=== PATIENT | female | born 1995 | race Caucasian/White ===

== ENCOUNTER 2017-06-12 04:58 | Inpatient (IN) | payer MEDICAID ==
[2017-06-12] MEDS: Lactated Ringers 1,000 ML IV SCH ×3 (05:50→11:17)
[2017-06-12] MEDS ORDERED: Sodium Chloride 0.9% 10 ML Syringe FLUSH PRN ×3 (06:12→12:06)
[2017-06-12] MEDS ORDERED: fentaNYL 100 MCG/2 ML SDV IVPUSH PRN (06:23)
[2017-06-12] MEDS ORDERED: Ondansetron 4 MG/2 ML SDV IV PRN (06:26)
[2017-06-12] MEDS ORDERED: fentaNYL 100 MCG/2 ML SDV ONE (07:36)
[2017-06-12] MEDS ORDERED: EPINEPHrine 1 MG/ML SDV ONE (07:37)
[2017-06-12] MEDS ORDERED: Carboprost Tromethamine 250 MCG/1 ML Amp IM PRN (07:59)
[2017-06-12] MEDS ORDERED: Lidocaine 1% 30 ML SDV INJECT PRN (07:59)
[2017-06-12] MEDS ORDERED: Misoprostol 400 MCG (4 X 100 MCG TAB) RECTAL PRN (07:59)
[2017-06-12] MEDS ORDERED: Lactated Ringers 500 ML IV ONE (07:59)
[2017-06-12] MEDS ORDERED: Methylergonovine 0.2 MG/1 ML Amp IM PRN (07:59)
[2017-06-12] MEDS ORDERED: Lactated Ringers 1,000 ML IV SCH (08:00)
--- NOTE | 2017-06-12 08:24 | PCM.PRNOTE ---
- Free Text/Narrative Note: Requested to provide analgesia to full term patient in severe pain. Upon entering the room, patient is lying on left side complaining of severe abdominal pain and discomfort. Procedure was discussed with patient including adverse outcomes and expectations. Pt consented to analgesia, SAB/IT. Pt placed into a sitting position. Landmarks for SAB/IT were identified and marked. Back was prepped with betadine x3. A sterile, transparent, fenestrated drape was applied. Excess betadine was removed. Using 3 mL of a 1% lidocaine solution, a skin wheel was placed at the L4/L5 interspace. A 24 ga (4 inch) Pencan spinal needle was inserted until positive for CSF. Negative for heme or paresthesias. Injected fentanyl 20 mcg, sufentanil 10 mcg, and 10.5 mg of a 0.75% bupivacaine solution with an epi wash. Pt was placed left lateral position for approximately 20 minutes. There were zero complications or adverse outcomes. Will continue to monitor.
[2017-06-12] MEDS ORDERED: Oxytocin/Normal Saline 30 UNIT/500 ML BAG IV SCH (11:30)
--- NOTE | 2017-06-12 11:39 | PN ---
DATE: 06/12/2017 SUBJECTIVE: The patient is comfortable, status post intrathecal. OBJECTIVE: Her blood pressure dropped minimally after her intrathecal. heart tones difficult to discern at times due to movement baseline, around 110 to 120 range. Tocometer when reading does reveal contractions every 2 to 4 minutes. Vaginal exam reveals her to be 5 cm. FSC was placed after discussion with the patient to further delineate heart tones. Minimal bloody show was noted on examiner's glove. ASSESSMENT AND PLAN: Intrauterine at 39 weeks by 11 week ultrasound with active labor, gestational hypertension, gestational thrombocytopenia, history of intrauterine growth restriction and borderline oligohydramnios in active labor status post intrathecal with some bloody show. Now status post FSC to follow status closely. We will continue to follow clinically and closely. I did discuss this with the patient and her male partner. They understand and agreed to above treatment plan. At current time of dictation, variability is improving. heart tone baseline between 110 and 120s. [facility] /[id number]
--- NOTE | 2017-06-12 11:42 | PN ---
DATE: 06/12/2017 SUBJECTIVE: The patient is comfortable, status post intrathecal. OBJECTIVE: heart tones baseline is around 115 and there are at least 2 accelerations seen by my eyes with no evidence of decelerations noted in light of contractions that are monitoring. Blood pressure 113/66, recheck 112/68, heart rate between 53 and 55, O2 sat 99%. Vaginal exam deferred. ASSESSMENT/PLAN: Intrauterine at 39 weeks by 11 week ultrasound in active labor with advancing cervical dilation. Group B Streptococcus negative. History of intrauterine growth restriction and borderline oligohydramnios, resolving on serial ultrasounds and gestational thrombocytopenia with suspected bloody show. I did discuss this with the patient that most likely the blood that was noted with vaginal exam and artificial rupture of membranes most likely related to her changing cervix and bloody show. Baby is tolerating every contractions and is reassuring and reactive. We will continue to follow clinically and closely. Both her and her male partner understand and agree. [facility] /[id number]
--- NOTE | 2017-06-12 11:45 | OBOUT ---
DATE: 06/12/2017 DATE AND TIME OF NST: Date: 06/12/2017. Time: 5:30 to 5:50. REASON FOR NST: 1. Intrauterine at 39 weeks by 11-week ultrasound. 2. Active labor. 3. Gestational hypertension. 4. Gestational thrombocytopenia with platelets of 146,000. 5. History of intrauterine growth restriction and borderline oligohydramnios, followed serially, resolving within the last couple weeks. 6. G1, P0. NST INTERPRETATION: During this time period, heart tone baseline is approximately 125 to 130, and there are at least two 15 x 15-beats per minute accelerations, making this strip reactive. It is also noted to be reassuring. Tocometer reveals potential of 5 to 6 contractions felt by patient. ASSESSMENT: 1. Nonstress test, reactive and reassuring. 2. Tocometer with contraction. PLAN: Please see admit history and physical for further details. [facility] /[id number]
[2017-06-12] MEDS ORDERED: Benzocaine/Menthol 20%-0.5% Spray 56 GM Canister TOP PRN (12:06)
[2017-06-12] MEDS ORDERED: Simethicone 80 MG Tab.Chew PO PRN (12:06)
[2017-06-12] MEDS ORDERED: Zolpidem 5 MG Tab PO PRN (12:06)
[2017-06-12] MEDS ORDERED: Oxytocin 10 Units/1 ML SDV IM PRN (12:06)
--- NOTE | 2017-06-12 13:31 | HP ---
PATIENT IDENTIFICATION: Jessenia Rg is a 22-year-old, G1, P0 intrauterine at 39 weeks by 11 week ultrasound who presents with contraction. HISTORY OF PRESENT ILLNESS: Contractions started night prior to admission, woke her up at 2 a.m. on date of admission, increasing in frequency and intensity to the point that they are coming every 5-7 minutes, felt in the lower abdomen, worsening over time causing her to breathe through them. Nothing seems to make them better. Time made them worse. Not associated with any spotting, bleeding, or leaking to put this into context. She is GBS negative. Has history of borderline oligohydramnios and IUGR, which have been followed with serial ultrasounds and improving with no evidence IUGR/borderline oligo on her last ultrasound within the last 2 weeks. Records were called for and reviewed as well also supplemented by patient history. OBSTETRICAL HISTORY: Primi. ANTEPARTUM LABS: ABO blood type A positive, negative antibody. Rubella immune. RPR nonreactive. Negative hepatitis B surface antigen. Negative HIV, GC, and Chlamydia. Wet prep within normal limits. One-hour GTT on 03/05/2017 was 85. On 05/16/2017 GBS was negative. ALLERGIES: None. MEDICATIONS: vitamins. PAST MEDICAL/PAST SURGICAL HISTORY: Reviewed with history of anemia as a child. Tonsil and adenoidectomy at age 6 as well as tympanostomy tube placement when she was a child. FAMILY HISTORY: Alcohol abuse in paternal grandmother. Maternal grandfather with stomach cancer. High blood pressure in mother. Negative family history of defects, anesthesia problems, bleeding problems, thyroid disease. SOCIAL HISTORY: Moved to [place] from [place] in June. Boyfriend is from [place]. No children, age 33. His name is Reji Wing, works [employer] and a [employer] in [place]. They are expecting a girl. The patient denies any alcohol or drug use. She has been cutting back on the tobacco. REVIEW OF SYSTEMS: Otherwise reviewed and felt to be noncontributory. OBJECTIVE: Vital Signs: Initial blood pressure was 140/98, heart rate 67, patient is afebrile. Appearance: Female appears and acting appropriate for age. Nontoxic appearance. HEENT: Head atraumatic. EOMs intact. PERRLA. No scleral icterus. No obvious otorhinorrhea. Mucous membranes moist. Neck: No obvious tenderness. Lungs: Clear to auscultation bilaterally. Heart: S1 and S2 regular rate and rhythm. Abdomen: Gravid. Marino indeterminate. Nontender. Nondistended. Bowel sounds positive. No other organomegaly, pulsatile masses, or obvious hernias. No rebound, rigidity, or guarding. Genitourinary: Normal external female genitalia. Normal position and presentation of urethra. Vaginal exam reveals to be 5+ cm and after discussion with the patient, artificial rupture membranes was done. This was after she received her intrathecal and was comfortable. It revealed bloody show with amniotic fluid. Extremities: No peripheral edema. Deep tendon reflexes 3 to 4/4 bilaterally and symmetric in extremities. Psychiatric: Mood and affect are congruent. Judgment and insight intact. Skin: Without any cyanosis, clubbing, or jaundice. NST was found to be reactive and reassuring. Tocometer reveals currently 1 contractions reading approximately every 2 to 4 minutes. ASSESSMENT/PLAN: 1. Intrauterine at 39 weeks by 11 week ultrasound. 2. Active labor with advancing cervical dilation. The patient has been followed serially and has had advancing cervical dilation with contractions. 3. Gestational hypertension. The patient had a workup for preeclampsia. Labs were essentially within normal limits with her urine protein creatinine ratio less than 0.3. Her platelets, however, were 146,000. 4. Gestational thrombocytopenia, platelets 146,000. We will follow closely. 5. History of intrauterine growth restriction and borderline oligohydramnios, resolving with serial ultrasounds over the last couple weeks. 6. 1, para 0. PLAN: Did discuss with patient. With her bloody show, we will follow status closely, hold off on the OR starting a case if they ask and follow clinically. Discussed with the patient potential need for based on maternal status as well. She understands and agrees with the above treatment plan. I did discuss with her and her male partner risks, benefits, alternatives, and complications of , including but not limited to, infection, bleeding, damage to internal organs such as bowel, bladder, tubes, uterus, sometimes fetus, rarely needing a blood transfusion or further surgery, and rare maternal or . She understands and agrees if is neededa At current time of dictation the patient has been started on some oxygen, has moved off to the left side and heart tones are in between the 110s and 120s when being read. [facility] /[id number]
--- NOTE | 2017-06-12 13:34 | DEL ---
DATE: 06/12/2017 PREOPERATIVE DIAGNOSES: 1. Intrauterine at 39 weeks by 11-week ultrasound. 2. Active labor upon admit. 3. Gestational hypertension upon admit. 4. Group B Streptococcus negative. 5. History of intrauterine growth restriction and borderline oligohydramnios, resolved over serial evaluations/ultrasounds last few weeks. 6. Gestational thrombocytopenia with platelets a 146,000. 7. G1, P0. POSTOPERATIVE DIAGNOSES: 1. Intrauterine at 39 weeks by 11-week ultrasound, delivered. 2. Active labor upon admit. 3. Gestational hypertension upon admit. 4. Group B Streptococcus negative. 5. History of intrauterine growth restriction and borderline oligohydramnios, resolved over serial evaluations/ultrasounds last few weeks. 6. Gestational thrombocytopenia with platelets a 146,000. 7. G1, P0. 8. Suspect small abruption with old blood and clots with delivery of placenta all less than a quarter size in shape. PROCEDURE PERFORMED: NST, FSE, and subsequent spontaneous vaginal delivery per Dr. Tanner on 06/12/2017. ANESTHESIA/ANALGESIA: Intrathecal in the first stage of labor. ESTIMATED BLOOD LOSS: 250 mL. FINDINGS: Female, scores 8 and 9, weight pending. SUMMARY OF EVENTS: The patient is a 22-year-old, G1, P0, intrauterine 39 weeks by 11-week ultrasound, admitted in active labor with gestational hypertension. She had a workup for HELLP syndrome and was noted to have only low platelets of a 146,000. As she is progressing more into labor, she requested intrathecal and this was subsequently given, then subsequently had artificial rupture of membranes, after discussing with the patient, I did yield some bloody fluid. The patient's maternal and status was closely followed thereafter and FSE was placed to further evaluate as there were some discrepancies on heart tone. Had some reassuring heart tones with category 1 type strip. Subsequently, she was followed closely thereafter, and serially evaluated. She subsequently was found to be complete. I was called to the room, donned in sterile gown and gloves. The patient started pushing with contractions and vertex was delivered in NASREEN presentation, followed by rest of the infant, anterior and posterior shoulder and rest of the infant without difficulty. Mouth and nares were suctioned. Cord was doubly clamped and cut, and was resuscitated on mother's abdomen. Then, approximately 10 mL of cord blood was obtained for labs. At that time, there was noted to be 2 small clots smaller then size of a dime that was consistent of old blood. Placenta then delivered with gentle cord traction and fundal massage within 5 minutes and there was noted to be another blood clot about the size of a quarter that was old blood as well. Calcifications were noted along the placenta edges and in the placenta as well. Perineum, vagina, and perirectal areas were then examined and noted to have a small first-degree perineal laceration, nonbleeding, non-repaired, and less 1 cm after discussion with the patient. Mother and are currently stable at the time of dictation. [facility] /[id number]
[2017-06-12] MEDS: Ibuprofen 800 MG Tab PO PRN (15:18)
[2017-06-12] MEDS: Docusate Sodium 100 MG Cap PO PRN (15:19)
[2017-06-12] MEDS: Acetaminophen 325 MG Tab PO PRN (22:52)
[2017-06-13] MEDS: Ibuprofen 800 MG Tab PO PRN ×3 (00:08→19:41)
[2017-06-13] MEDS: Acetaminophen 325 MG Tab PO PRN (07:47)
[2017-06-13] MEDS: Prenatal Multivitamin with Calcium/Folic Acid/Iron Tab PO SCH ×2 (07:47→13:21)
[2017-06-13] MEDS: Docusate Sodium 100 MG Cap PO PRN (07:47)
[2017-06-14] MEDS: Prenatal Multivitamin with Calcium/Folic Acid/Iron Tab PO SCH (09:35)
[2017-06-14] MEDS: Docusate Sodium 100 MG Cap PO PRN (09:35)
[2017-06-14] MEDS: Ibuprofen 800 MG Tab PO PRN (09:35)
--- NOTE | 2017-06-14 09:42 | PN ---
DATE: 06/13/2017 SUBJECTIVE: The patient is tolerating p.o., ambulating, urinating, and passing flatus. Her itching has resolved. Her pain is under control. OBJECTIVE: Vital signs: Reveal a temperature of 98.2, heart rate of 70. blood pressure 125/71, and listed in the chart 199/82. I believe this is an error as previous blood pressures were within normal limits. Respiratory rate between 14 and 18. Appearance: Female appears her stated age, acting appropriate for age, nontoxic in appearance. Lungs: Clear to auscultation bilaterally. Heart: S1 and S2. Regular rate and rhythm. Abdomen: Firm uterus around the umbilicus. Extremities: No peripheral edema. No calf pain. LABORATORY DATA: Reveal a white cell count of 12.2, hemoglobin 13, and platelets of 135,000. ASSESSMENT AND PLAN: 1. day #1, status post spontaneous vaginal delivery with gestational hypertension. Her blood pressures have normalized although the last reading I believe is a mistake. 2. Gestational thrombocytopenia. Platelets are decreasing down to 135,000 from 146,000. We will repeat CBC in the morning, and follow clinically and closely. No evidence of active bleeding currently. The patient understands and agrees with the above treatment plan. [facility] /[id number]
--- NOTE | 2017-06-14 10:06 | DISCH ---
ADMIT DIAGNOSES: 1. Intrauterine at 39 weeks by 11-week ultrasound. 2. Active labor upon admission. 3. Gestational hypertension. 4. Group B strep negative. 5. History of intrauterine growth restriction, borderline oligohydramnios, resolving with serial ultrasounds. 6. Gestational thrombocytopenia with platelets a 146,000 upon admission. 7. G1, P0. POSTOPERATIVE DIAGNOSES: 1. Intrauterine at 39 weeks by 11-week ultrasound- delivered. 2. Active labor upon admission. 3. Gestational hypertension. 4. Group B strep negative. 5. History of intrauterine growth restriction, borderline oligohydramnios, resolving with serial ultrasounds. 6. Gestational thrombocytopenia with platelets a 146,000 upon admission. 7. G1, P0. 8. Suspect small abruption with old blood and clots with delivery of placenta. PROCEDURE PERFORMED: NST, FSE, artificial rupture membranes, and spontaneous vaginal delivery on 06/12/2017. Procedure was performed by Juan Pablo Tanner MD HISTORY OF PRESENT ILLNESS: Please see H and P. SUMMARY OF HOSPITAL COURSE: The patient was admitted on the above date with the above diagnoses, underwent the above procedures. She had gestational hypertension with gestational thrombocytopenia with platelets of a 146,000. Her labs were done for PIH panel which were essentially unremarkable with protein- creatinine ratio 0.08. She subsequently went onto have a spontaneous vaginal delivery yielding a female with scores of 8 and 9, weighing 6 pounds 11 ounces (3020 g), with noted suspected small abruption with old blood and clots with delivery of placenta with blood noted upon artificial rupture of membranes. She was followed closely thereafter. FSE was placed. She subsequently had spontaneous vaginal delivery as above. day #1, please see progress note. day #2, date of discharge, the patient was tolerating p.o., ambulating, urinating, passing flatus, and requesting discharge. PHYSICAL EXAMINATION: Vital Signs: Last set of vitals to be updated and listed in the chart. Blood pressure 129/93, recheck 143/87; heart rate 56 to 58. The patient is afebrile. Lungs: Clear to auscultation bilaterally. Heart: S1 and S2. Regular rate and rhythm. Abdomen: Firm uterus at -1 below umbilicus. Extremities: No peripheral edema. No calf pain. LABORATORY DATA: Discharge labs are pending with a CBC to re-evaluate her platelet count as well as hemoglobin. CONDITION ON DISCHARGE COMPARED TO CONDITION ON ADMISSION: Improved. DISCHARGE INSTRUCTIONS: 1. Diet: As tolerated. 2. Activity: No lifting more than 20 pounds, no sit-ups, straining, and pelvic rest for the next 6 weeks with immediate return to fertility discussed with the patient. 3. Reasons to return or go to the emergency room were discussed with the patient in detail including, but not limited to, temperature greater than 100.4, foul-smelling discharge, red hot tender breasts, or increased vaginal bleeding. DISCHARGE MEDICATIONS: 1. [id number] Tylenol or ibuprofen for pain. 2. vitamins while breast feeding. FOLLOWUP: Followup on 06/17/2017, if platelets are less than 140,000 on this morning's labs or concerns with her blood pressure persist. I did discuss with her in the interim as well if she has any severe headaches, visual changes, or upper abdominal pain to return. We will follow closely thereafter. Follow up on Saturday with Dr. Tanner for repeat labs CBC and blood pressure evaluation. Signs and symptoms of severe preeclampsia were discussed the patient as well as reasons to return or go to the emergency room. [facility] /[id number]
[2017-06-14] MEDS ORDERED: EPINEPHrine 1 MG/ML SDV IV ONE (11:37)
[2017-06-14] MEDS ORDERED: fentaNYL 100 MCG/2 ML SDV ITHECAL ONE (11:37)
== END 2017-06-14 10:45 | disposition home or self-care (01) | DRG 774 ==
LOC: DL.OBCHECK 04:58 → DL.OB 05:25 → OBSVTOIN 11:54 → DL.MS 06-13 09:00
PROVIDERS: ADMIT Family Medicine; ATTEND Family Medicine
PROC: 10E0XZZ Delivery of Products of Conception, External Approach (ICD-10-PCS; principal; 2017-06-12)
PROC: 4A0HXCZ Measurement of Products of Conception, Cardiac Rate, External Approach (ICD-10-PCS; 2017-06-12)
PROC: 10907ZC Drainage of Amniotic Fluid, Therapeutic from Products of Conception, Via Natural or Artificial Opening (ICD-10-PCS; 2017-06-12)
DX: O13.3 Gestational [pregnancy-induced] hypertension without significant proteinuria, third trimester (principal); O99.113 Other diseases of the blood and blood-forming organs and certain disorders involving the immune mechanism complicating pregnancy, third trimester; O13.4 Gestational [pregnancy-induced] hypertension without significant proteinuria, complicating childbirth; O45.93 Premature separation of placenta, unspecified, third trimester; O99.12 Other diseases of the blood and blood-forming organs and certain disorders involving the immune mechanism complicating childbirth; O41.03X0 Oligohydramnios, third trimester, not applicable or unspecified; O36.5930 Maternal care for other known or suspected poor fetal growth, third trimester, not applicable or unspecified; Z3A.39 39 weeks gestation of pregnancy; Z37.0 Single live birth
CPT/HCPCS: 01967; 36415; 59409; 81003; 82570; 83615; 84156; 84450; 84460; 84520; 84550; 85025; 85027; A9270-GY; J0171; J2405; J2590; J3010; J7120

== ENCOUNTER 2019-07-27 10:17 | Inpatient (IN) | payer MEDICAID ==
[2019-07-27] MEDS ORDERED: Lactated Ringers 1,000 ML IV ONE (10:18)
[2019-07-27] MEDS ORDERED: Carboprost Tromethamine 250 MCG/1 ML Amp IM PRN (10:18)
[2019-07-27] MEDS ORDERED: Methylergonovine 0.2 MG/1 ML Amp IM PRN (10:18)
[2019-07-27] MEDS ORDERED: Misoprostol 400 MCG (4 X 100 MCG TAB) RECTAL PRN (10:18)
[2019-07-27] MEDS ORDERED: Sodium Chloride 0.9% 10 ML Syringe FLUSH PRN ×2 (10:18→19:44)
[2019-07-27] MEDS ORDERED: Acetaminophen 325 MG Tab PO PRN (10:18)
[2019-07-27] MEDS ORDERED: Tranexamic Acid 1,000 MG in Sodium Chloride 0.9% 100 ML IV PRN (10:18)
[2019-07-27] MEDS ORDERED: Ondansetron 4 MG/2 ML SDV IVPUSH PRN (10:18)
[2019-07-27] MEDS ORDERED: Lidocaine 1% 30 ML SDV INJECT PRN (10:18)
[2019-07-27] MEDS ORDERED: Oxytocin/Normal Saline 30 UNIT/500 ML BAG IV SCH ×2 (10:30)
[2019-07-27] MEDS: Misoprostol 25 MCG (1/4 of 100 MCG) Tab VAG PRN ×2 (10:52→15:22)
[2019-07-27] MEDS: Lactated Ringers 1,000 ML IV SCH ×2 (17:45→18:09)
[2019-07-27] MEDS ORDERED: fentaNYL 100 MCG/2 ML SDV ONE (17:57)
[2019-07-27] MEDS ORDERED: EPINEPHrine 1 MG/1 ML Amp ONE (17:57)
--- NOTE | 2019-07-27 18:33 | PCM.PRNOTE ---
- Free Text/Narrative Note: Requested to provide analgesia to full term patient in severe pain. Upon entering the room, patient is sitting on edge of bed complaining of severe abdominal/pelvic pain and discomfort. Procedure was discussed with patient including adverse outcomes and expectations. Pt consented to analgesia, SAB/ IT. Pt placed into a proper sitting position. Landmarks for SAB/IT were identified and marked. Hands were washed and appropriate PPE was applied. Back was prepped with betadine x3. A sterile, transparent, fenestrated drape was applied. Excess betadine was removed. Using 3 mL of a 1% lidocaine solution , a skin wheel was placed at the L2/L3 interspace. A 24 ga (4 inch) Pencan spinal needle was inserted until positive for CSF. Negative for heme or paresthesias. Injected fentanyl 30 mcg, sufentanil 25 mcg, and 7.5 mg of a 0.75 % bupivacaine solution with an epi wash. Pt was placed left lateral position for approximately 20 minutes. There were zero complications or adverse outcomes. Will continue to monitor. Procedure Date & Time: 07/27/19 [id number]
[2019-07-27] MEDS ORDERED: Benzocaine/Menthol 20%-0.5% Spray 56 GM Canister TOP PRN (19:44)
[2019-07-27] MEDS ORDERED: Simethicone 80 MG Tab.Chew PO PRN (19:44)
[2019-07-27] MEDS ORDERED: Zolpidem 5 MG Tab PO PRN (19:44)
[2019-07-27] MEDS ORDERED: Oxytocin 10 Units/1 ML SDV IM PRN (19:44)
[2019-07-27] MEDS: Ibuprofen 800 MG Tab PO PRN (20:30)
[2019-07-27] MEDS: Docusate Sodium 100 MG Cap PO PRN (20:30)
[2019-07-27] MEDS: ceFAZolin 2 GM in Premix Bag 1 BAG IV SCH ×2 (20:30→23:56)
[2019-07-28] MEDS: Ibuprofen 800 MG Tab PO PRN ×3 (04:43→20:28)
[2019-07-28] MEDS: ceFAZolin 2 GM in Premix Bag 1 BAG IV SCH ×2 (04:44→13:09)
[2019-07-28] MEDS: Prenatal Multivitamin with Calcium/Folic Acid/Iron Tab PO SCH (08:48)
[2019-07-28] MEDS: Docusate Sodium 100 MG Cap PO PRN ×2 (08:49→20:28)
[2019-07-28] MEDS: Acetaminophen 325 MG Tab PO PRN ×3 (08:53→23:37)
--- NOTE | 2019-07-28 10:19 | DEL ---
DATE: 07/27/2019 PREOPERATIVE DIAGNOSES: 1. Intrauterine at 37 and 4/7 weeks by 6 and 6/7 weeks ultrasound. 2. growth restriction. 3. Group B Streptococcus negative. 4. Close interval . 5. G3, P2-0-0-2. POSTOPERATIVE DIAGNOSES: 1. Intrauterine at 37 and 4/7 weeks by 6 and 6/7 week ultrasound - delivered. 2. growth restriction. 3. Group B Streptococcus negative. 4. Close interval . 5. G3, P2-0-0-2. 6. Nuchal cord x1, reduced bluntly with delivery. 7. Uterine atony requiring aggressive fundal massage and Pitocin per protocol. 8. Retained placental membranes requiring bimanual exam with finger uterine curettage with removal of placental membranes with bleeding slowed thereafter. PROCEDURES PERFORMED: NST followed by Cytotec x2 and artificial rupture of membranes with spontaneous vaginal delivery and bimanual exam with finger uterine curettage on 07/27/[address] Tanner. ANESTHESIA/ANALGESIA: The patient did receive an intrathecal in the 1st stage of labor. ESTIMATED BLOOD LOSS: 300 mL. FINDINGS: Female, score and weight pending. Nuchal cord x1 reduced bluntly with delivery. SUMMARY OF EVENTS: The patient is a 24-year-old G3, P2-0-0-2, intrauterine at 37 and 4/7 weeks by 6 and 6/7 weeks ultrasound, growth restriction, admitted for induction of labor. Underwent the above procedures, went from 3 to 4 cm to complete over rapid amount of time, less than 2 hours. Was found to be complete, I was called to the room. She had an intrathecal prior to this. She subsequently pushed, with 1 contraction and 3 pushes had vertex in DAMASO presentation, followed by rest of the infant. Nuchal cord x1, reduced bluntly with delivery. Mouth and nares were suctioned, cord was doubly clamped and cut, and infant was resuscitated on mother's abdomen. Approximately 10 mL cord blood was obtained for labs. Placenta then delivered with gentle cord traction and fundal massage within approximately 5 to 10 minutes. After placenta was delivered, fundal massage ensued. Atony was noted with increased bleeding. Pitocin was started per protocol. Continued fundal massage was done and bleeding persisted, subsequently bimanual exam with finger uterine curettage was done and removed placental membranes and a clot with bleeding decreased thereafter. Perineum, vagina, and perirectal areas were then examined without any tears or lacerations. Mother and infant are currently stable at the time of dictation. [facility] /[id number]
--- NOTE | 2019-07-28 10:57 | PN ---
DATE: 07/28/2019 day #1. SUBJECTIVE: The patient is tolerating p.o., ambulating, urinating, and passing flatus. Her bleeding is decreasing. OBJECTIVE: Vital Signs: Temperature 98.1, heart rate is 52, blood pressure 111/74, and respiratory rate 16. Lungs: Clear to auscultation bilaterally. Heart: S1, S2. Regular rate and rhythm. Abdomen: Firm uterus -2 below umbilicus. Extremities: No peripheral edema. No calf pain. LABORATORY DATA: White cell count 11.6; hemoglobin 12.1, compared to predelivery hemoglobin of 13.4; and platelet count of 115 compared to predelivery platelet count of 142. ASSESSMENT AND PLAN: 1. day #1, status post spontaneous vaginal delivery with bimanual exam and finger uterine curettage to remove retained placental membranes and to help with uterine atony. 2. Gestational/ thrombocytopenia. At this point in time, patient's pressures are within normal limits. We will continue to follow clinically and closely. Repeat complete blood count tomorrow. Watch her bleeding status and proceed from there. She understands and agrees with the above treatment plan. Possible discharge tomorrow. [facility] /[id number]
--- NOTE | 2019-07-28 12:04 | PN ---
DATE: 07/27/2019 SUBJECTIVE: The patient is comfortable now status post intrathecal. She is now status post Cytotec x2. OBJECTIVE: Vital Signs: Blood pressure 107/58, heart rate 61. heart tones baseline around the 150s range with variable decelerations with contractions. Tocometer reveals contractions every 1-1/2 to 2 minutes. Genitourinary: Vaginal exam reveals her to be 4+ cm, 80% effaced, negative 1 station. Vertex suspected. Artificial rupture membranes done after discussion with the patient yielding copious amounts of clear fluid. ASSESSMENT AND PLAN: Intrauterine at 37-4/7 weeks by 6-6/7 weeks' ultrasound with growth restriction, undergoing induction of labor with the above procedures done. We will continue to follow clinically and closely at this point in time. The patient understands and agrees with the above treatment plan. [facility] /[id number]
--- NOTE | 2019-07-28 12:18 | OBOUT ---
DATE: 07/27/2019 DATE AND TIME OF NST: 07/27/2019, 10:50 to 11:10. REASON FOR NST: 1. Intrauterine at 37 and 4/7 weeks by 6 and 6/7 week ultrasound. 2. growth restriction. 3. GBS negative. 4. Close interval of . 5. G3, P2-0-0-2. NST INTERPRETATION: During this time period, heart tone baseline is approximately 140, and there are at least two 15 x 15 beats per minute accelerations, making this strip reactive. It is also noted to be reassuring. Tocometer reveals no evidence contractions. Cervical exam, 1.5 cm, 60% effaced, vertex suspected. Temperature 99.1, blood pressure prior to this was 112/70, heart rate 76. ASSESSMENT: 1. Nonstress test, reactive and reassuring. 2. Tocometer without contractions. PLAN: Please see clinic notes for further details. The patient is being admitted for Cytotec type of induction. We will continue to follow clinically and closely thereafter. For this, records were called for, reviewed and supplemented by patient history, further history and physical which was done through [facility] as well as review of systems reviewed and felt to be contributory for what was noted. [facility] /[id number]
[2019-07-29] MEDS: Acetaminophen 325 MG Tab PO PRN ×2 (04:45→08:49)
[2019-07-29] MEDS: Ibuprofen 800 MG Tab PO PRN ×2 (04:45→12:22)
[2019-07-29] MEDS: Docusate Sodium 100 MG Cap PO PRN (08:49)
[2019-07-29] MEDS: Prenatal Multivitamin with Calcium/Folic Acid/Iron Tab PO SCH (08:49)
[2019-07-29] MEDS ORDERED: fentaNYL 100 MCG/2 ML SDV ITHECAL ONE (11:53)
[2019-07-29] MEDS ORDERED: EPINEPHrine 1 MG/1 ML Amp ONE (11:53)
--- NOTE | 2019-07-30 10:20 | DISCH ---
ADMITTING DIAGNOSES: 1. Intrauterine at 37-4/7 weeks by 6th and 7th week ultrasound. 2. growth restriction. 3. Group B Streptococcus negative. 4. Close-interval . 5. G3, P2-0-0-2. DISCHARGE DIAGNOSES: 1. Intrauterine at 37-4/7 weeks by 6th and 7th week ultrasound - delivered. 2. growth restriction. 3. Group B Streptococcus negative. 4. Close-interval . 5. G3, P2-0-0-2. 6. Nuchal cord x1, reduced bluntly with delivery. 7. Uterine atony and retained placental membranes, requiring bimanual exam as well as finger uterine curettage to clear placental membranes. 8. /gestational thrombocytopenia, resolving upon discharge. PROCEDURE PERFORMED: Nonstress test, Cytotec x2, artificial rupture of membranes, and subsequent spontaneous vaginal delivery with bimanual exam and finger uterine curettage for removal of placental membranes. Procedure performed by Juan Pablo Tanner MD HISTORY OF PRESENT ILLNESS: Please see H and P. SUMMARY OF HOSPITAL COURSE: The patient was admitted on the above date with above diagnoses. Underwent the above procedures. Then, went on to rapidly go into the 2nd stage of labor from 4 cm to complete in less than 2 hours and had a spontaneous vaginal delivery yielding a female, scores 8 and 9, weighing 5 pounds 6 ounces (2430 g). Please see delivery note for further details. Did require above procedures as well. For day #1, please see progress notes. For day #2, date of discharge, the patient was tolerating p.o., ambulating, urinating, passing flatus. PHYSICAL EXAMINATION: Last set of vitals: Updated and listed in chart. Temperature 98.1, heart rate between 51 to 56, blood pressure 110/77, respiratory rate 18. Lungs: Clear to auscultation bilaterally. Heart: S1, S2. Regular rate and rhythm. Firm uterus at -2 to -3 below umbilicus. Extremities: No peripheral edema. No calf pain. LABORATORY DATA: Platelets were followed closely. Predelivery platelets of 142. day one, 115 and date of discharge were 130,000. Hemoglobin stayed stable with predelivery hemoglobin 13.4 and postdelivery being 12.1. CONDITION ON ADMISSION: Improved. DISCHARGE INSTRUCTIONS: 1. Diet: As tolerated. 2. Activity: No lifting more than 20 pounds. No sit-ups, straining, and pelvic rest for next 6 weeks with immediate return to fertility discussed with the patient. 3. Reasons to return or go to emergency room were discussed with the patient, including, but not limited to, temperature greater than 100.4, foul- smelling discharge, red hot tender breasts, or increased vaginal bleeding. DISCHARGE MEDICATIONS: [id number] Tylenol or ibuprofen for pain and vitamins while . FOLLOWUP: 1. Follow up 6-week visit. 2. Follow up for her baby on 07/31/2019, and on 08/04/2019, in the clinic. Did discuss with mother the importance of followup and ramifications of not doing so as well as reasons to return or go to the emergency room in regard to her . The patient understands and agrees with the above treatment plan. [facility] /[id number]
== END 2019-07-29 12:25 | disposition home or self-care (01) | DRG 806 ==
LOC: DL.OBCHECK 10:17 → DL.OB 10:18 → OBSVTOIN 19:35 → DL.OB 19:35
PROVIDERS: ADMIT Family Medicine; ATTEND Family Medicine
PROC: 10E0XZZ Delivery of Products of Conception, External Approach (ICD-10-PCS; principal; 2019-07-27)
PROC: 10D17Z9 Manual Extraction of Products of Conception, Retained, Via Natural or Artificial Opening (ICD-10-PCS; 2019-07-27)
PROC: 10907ZC Drainage of Amniotic Fluid, Therapeutic from Products of Conception, Via Natural or Artificial Opening (ICD-10-PCS; 2019-07-27)
PROC: 3E0P7VZ Introduction of Hormone into Female Reproductive, Via Natural or Artificial Opening (ICD-10-PCS; 2019-07-27)
PROC: 3E0R3BZ Introduction of Anesthetic Agent into Spinal Canal, Percutaneous Approach (ICD-10-PCS; 2019-07-27)
DX: O36.5930 Maternal care for other known or suspected poor fetal growth, third trimester, not applicable or unspecified (principal); O72.1 Other immediate postpartum hemorrhage; Z37.0 Single live birth; O99.334 Smoking (tobacco) complicating childbirth; F17.210 Nicotine dependence, cigarettes, uncomplicated; O69.81X0 Labor and delivery complicated by cord around neck, without compression, not applicable or unspecified; O72.3 Postpartum coagulation defects; D69.6 Thrombocytopenia, unspecified; Z3A.37 37 weeks gestation of pregnancy; Z79.899 Other long term (current) drug therapy; Z90.89 Acquired absence of other organs
CPT/HCPCS: 36415; 59409; 85027; 90686; A9270-GY; G0008; J0171; J0690; J2405; J2590; J3010; J7120

== ENCOUNTER 2022-01-20 12:21 | Emergency (ER) | payer MEDICAID ==
[2022-01-20] MEDS ORDERED: Amoxicillin/Clavulanate K 875-125 MG Tab PO ONE ×2 (12:22→13:22)
[2022-01-20] MEDS ORDERED: Ketorolac 30 MG/ML SDV IM ONE (13:23)
[2022-01-20] MEDS ORDERED: Amoxicillin/Clavulanate K 875-125 MG Tab ONE (13:37)
== END 2022-01-20 13:45 | disposition home or self-care (01) ==
LOC: DL.ED 12:21
DX: K04.7 Periapical abscess without sinus (principal); K02.9 Dental caries, unspecified; Z91.048 Other nonmedicinal substance allergy status; Z87.891 Personal history of nicotine dependence
CPT/HCPCS: 96372; 99282; A9270-GY; J1885

== ENCOUNTER 2022-07-04 23:59 | Inpatient (IN) | payer MEDICAID ==
[2022-07-05] MEDS ORDERED: Ondansetron 4 MG/2 ML SDV IVPUSH PRN ×2 (02:48→07:38)
[2022-07-05] MEDS ORDERED: Sodium Chloride 0.9% 10 ML Syringe FLUSH PRN ×2 (02:48→10:02)
[2022-07-05] MEDS ORDERED: Acetaminophen 325 MG Tab PO PRN (02:48)
[2022-07-05] MEDS ORDERED: Lactated Ringers 1,000 ML IV ONE (02:48)
[2022-07-05] MEDS ORDERED: Carboprost Tromethamine 250 MCG/1 ML Amp IM PRN (02:48)
[2022-07-05] MEDS ORDERED: Lidocaine 1% 30 ML SDV INJECT PRN (02:48)
[2022-07-05] MEDS ORDERED: Tranexamic Acid 1,000 MG in Sodium Chloride 0.9% 100 ML IV PRN (02:48)
[2022-07-05] MEDS ORDERED: Methylergonovine 0.2 MG/1 ML Amp IM PRN (02:48)
[2022-07-05] MEDS ORDERED: Misoprostol 400 MCG (4 X 100 MCG TAB) RECTAL PRN (02:48)
[2022-07-05] MEDS ORDERED: Oxytocin/Normal Saline 30 UNIT/500 ML BAG IV SCH (03:00)
[2022-07-05] MEDS: Lactated Ringers 1,000 ML IV SCH ×2 (05:52→06:23)
[2022-07-05] MEDS ORDERED: Sodium Bicarbonate 4.2% 2.5 MEQ/5 ML SDV ONE ×2 (06:19→06:28)
[2022-07-05] MEDS ORDERED: EPINEPHrine 1 MG/ML SDV ONE ×2 (06:19→06:28)
[2022-07-05] MEDS ORDERED: Dexmedetomidine 200 MCG/2 ML SDV IT ONE (06:28)
[2022-07-05] MEDS ORDERED: Morphine PF 10 MG/10 ML SDV IT ONE (06:28)
[2022-07-05] MEDS ORDERED: Sodium Chloride 0.9% 20 ML SDV ONE (06:28)
[2022-07-05] MEDS ORDERED: Morphine PF 10 MG/10 ML SDV ONE (06:46)
[2022-07-05] MEDS ORDERED: Naloxone 2 MG/2 ML Syringe IVPUSH PRN (07:38)
[2022-07-05] MEDS ORDERED: ePHEDrine 50 MG/ML SDV IVPUSH PRN (07:38)
[2022-07-05] MEDS ORDERED: Promethazine 25 MG/ML SDV IM PRN (07:38)
[2022-07-05] MEDS ORDERED: Lactated Ringers 500 ML IV SCH ×2 (07:45)
[2022-07-05] MEDS ORDERED: Oxytocin 10 Units/1 ML SDV IM PRN (10:02)
[2022-07-05] MEDS ORDERED: Simethicone 80 MG Tab.Chew PO PRN (10:02)
[2022-07-05] MEDS ORDERED: Benzocaine/Menthol 20%-0.5% Spray 78 GM Cannister TOP PRN (10:02)
[2022-07-05] MEDS: Ibuprofen 800 MG Tab PO PRN (12:26)
[2022-07-05] MEDS ORDERED: Zolpidem 5 MG Tab PO PRN (21:00)
[2022-07-06] MEDS: Docusate Sodium 100 MG Cap PO PRN ×2 (01:24→09:07)
[2022-07-06] MEDS: Ibuprofen 800 MG Tab PO PRN ×2 (01:24→09:08)
[2022-07-06] MEDS ORDERED: Prenatal Multivitamin with Calcium/Folic Acid/Iron Tab PO SCH (09:00)
== END 2022-07-06 14:00 | disposition home or self-care (01) | DRG 807 ==
LOC: DL.OBCHECK 23:59 → DL.OB 07-05 02:48 → OBSVTOIN 07-05 09:50
PROVIDERS: ADMIT Family Medicine; ATTEND Family Medicine
PROC: 10E0XZZ Delivery of Products of Conception, External Approach (ICD-10-PCS; principal; 2022-07-05)
PROC: 10907ZC Drainage of Amniotic Fluid, Therapeutic from Products of Conception, Via Natural or Artificial Opening (ICD-10-PCS; 2022-07-05)
DX: O99.344 Other mental disorders complicating childbirth (principal); Z37.0 Single live birth; Z3A.37 37 weeks gestation of pregnancy; O99.02 Anemia complicating childbirth; D64.9 Anemia, unspecified; Z20.822 Contact with and (suspected) exposure to COVID-19; F41.1 Generalized anxiety disorder
CPT/HCPCS: 01967; 36415; 59409; 85027; A9270-GY; J0171; J2270; J2405; J2590; J3490; J7120; U0002

== ENCOUNTER 2022-11-08 00:27 | Emergency (ER) | payer MEDICAID ==
[2022-11-08] MEDS ORDERED: Amoxicillin/Clavulanate K 875-125 MG Tab PO ONE (01:06)
[2022-11-08] MEDS ORDERED: Take Home: Lidocaine 2% Viscous Solution 15 ML UD, 2 Cup Pack PO ONE (01:06)
== END 2022-11-08 01:23 | disposition home or self-care (01) ==
LOC: DL.ED 00:27
DX: K03.81 Cracked tooth (principal); K02.9 Dental caries, unspecified; Z91.048 Other nonmedicinal substance allergy status
CPT/HCPCS: 99282; A9270

== ENCOUNTER 2022-11-09 21:44 | Emergency (ER) | payer MEDICAID ==
[2022-11-09] MEDS ORDERED: Ketorolac 30 MG/ML SDV IM ONE (22:23)
== END 2022-11-09 22:46 | disposition home or self-care (01) ==
LOC: DL.ED 21:44
DX: K04.7 Periapical abscess without sinus (principal); K02.9 Dental caries, unspecified; Z88.8 Allergy status to other drugs, medicaments and biological substances; Z72.0 Tobacco use
CPT/HCPCS: 96372; 99282; 99283; J1885

== ENCOUNTER 2023-11-09 12:20 | Emergency (ER) | payer MEDICAID ==
[2023-11-09] MEDS: Take Home: Acetaminophen/HYDROcodone 325-5 MG, 5 Tab Pack PO ONE (13:55)
== END 2023-11-09 13:40 | disposition home or self-care (01) ==
LOC: DL.ED 12:20
DX: S82.435A Nondisplaced oblique fracture of shaft of left fibula, initial encounter for closed fracture (principal); Z91.048 Other nonmedicinal substance allergy status; W01.0XXA Fall on same level from slipping, tripping and stumbling without subsequent striking against object, initial encounter; Y92.838 Other recreation area as the place of occurrence of the external cause
CPT/HCPCS: 73590; 73610; 99283; A9270